=== PATIENT | male | born 1985 | race Caucasian/White ===

== ENCOUNTER → 2017-12-20 | Outpatient (CLI) | payer BC | END | disposition home or self-care (01) | LOC: LABWHC1 09:42 | PROVIDERS: ATTEND Orthopaedic Surgery | DX: M25.571 Pain in right ankle and joints of right foot (principal); M10.9 Gout, unspecified; M79.671 Pain in right foot | CPT/HCPCS: 89060 ==

== ENCOUNTER → 2019-01-11 | Outpatient (CLI) | payer BC ==
[2019-01-11 07:06] LABS: Basophils # (A) 0.1 k/uL (0-0.2); Basophils % (A) 1 %; Eosinophils # (A) 0.3 k/uL (0-0.7); Eosinophils % (A) 5 %; HCT 47.7 % (39.0-53.0); HGB 15.4 gm/dL (13.0-17.5); Lymphocytes # (A) 2.5 k/uL (1.0-4.8); Lymphocytes % (A) 41 %; MCH 28.5 pg (25.0-35.0); MCHC 32.4 g/dL (31.0-37.0); MCV 88.1 fL (80.0-100.0); Mean Platelet Volume 5.9; Monocytes # (A) 0.4 k/uL (0-1.0); Monocytes % (A) 6 %; Neutrophils # (A) 2.7 k/uL (1.3-7.7); Neutrophils % (A) 44 %; Platelet Count 371 k/uL (150-450); RBC 5.41 m/uL (4.30-5.90); RDW 13.2 % (11.5-15.5); WBC 6.1 k/uL (3.8-10.6)
[2019-01-11 13:45] LABS: Hemoglobin A1C 5.7 % (4.0-6.0)
[2019-01-11 15:15] LABS: T4, Free (Free Thyroxine) 1.1 ng/dL (0.80-1.80)
[2019-01-11 16:24] LABS: African American GFR (CKD) 100.3 (60.0-200.0); Albumin 4.7 g/dL (3.80-4.90); Albumin/Globulin Ratio 2.04 (1.60-3.17); Anion Gap 10.6 mmol/L (4.00-12.00); BUN/Creat Ratio 13.64 Ratio (12.00-20.00); Bilirubin, Conjugated 0.2 mg/dL (0.20-0.40); Bilirubin,Unconjugated 0.5 mg/dL; Calcium 9.7 mg/dL (8.7-10.3); Carbon Dioxide 23.4 mmol/L (21.6-31.8); Chol/HDL Ratio 4.93; Globulin 2.3 g/dL (1.6-3.3); LDL Cholesterol,Calculated 118.8 mg/dL (0.0-131.0); Potassium 4.5 mmol/L (3.5-5.5); Total Bilirubin 0.7 mg/dL (0.3-1.2); VLDL Calculation 42.2 mg/dL (5.00-40.00)
== END | disposition home or self-care (01) ==
LOC: LABWHC1 06:44
PROVIDERS: ATTEND Nurse Practitioner Family
DX: Z00.00 Encounter for general adult medical examination without abnormal findings (principal); E03.9 Hypothyroidism, unspecified; Z83.3 Family history of diabetes mellitus
CPT/HCPCS: 36415; 80053; 80061; 82150; 82248; 83036; 83690; 84439; 84443; 85025

== ENCOUNTER → 2019-11-29 | Outpatient (CLI) | payer BC ==
[2019-11-29 09:07] LABS: ALT 160 U/L (4-49); AST 79 U/L (17-59); African American GFR (CKD) >90 (>60 ml/min/1.73 sqM); Albumin 4.8 g/dL (3.5-5.0); Alkaline Phosphatase 62 U/L (38-126); Anion Gap 7 mmol/L; Blood Urea Nitrogen 19 mg/dL (9-20); Calcium 9.7 mg/dL (8.4-10.2); Carbon Dioxide 28 mmol/L (22-30); Chloride 102 mmol/L (98-107); Cholesterol 220 mg/dL (<200); Glucose 106 mg/dL (74-99); HDL Cholesterol 45 mg/dL (40-60); LDL Cholesterol,Calculated 136 mg/dL (0-99); Non-African American GFR(CKD) >90 (>60 ml/min/1.73 sqM); Potassium 4.8 mmol/L (3.5-5.1); Sodium 137 mmol/L (137-145); Total Protein 7.9 g/dL (6.3-8.2); Triglycerides 195 mg/dL (<150); Uric Acid 7.5 mg/dL (3.5-8.5)
--- NOTE | 2019-11-29 09:51 | XR ---
EXAMINATION TYPE: XR shoulder complete RT DATE OF EXAM: 11/29/2019 CLINICAL HISTORY: History of recurrent shoulder dislocation with pain TECHNIQUE: Three views of the right shoulder are obtained. COMPARISON: None. FINDINGS: There is no acute fracture/dislocation evident in the right shoulder. Mild to moderate humphrey rowing and mild spurring at acromioclavicular joint. The distal acromion morphology is unremarkable . Glenohumeral joint is maintained currently. The visualized ribs are intact and unremarkable. IMPRESSION: As above.
== END | disposition home or self-care (01) ==
LOC: RADXRMAIN 07:35
PROVIDERS: ATTEND Family Medicine
DX: M25.811 Other specified joint disorders, right shoulder (principal); E03.9 Hypothyroidism, unspecified; E78.2 Mixed hyperlipidemia; M10.9 Gout, unspecified; Z79.899 Other long term (current) drug therapy
CPT/HCPCS: 80053; 80061; 84439; 84443; 84550; 86780

== ENCOUNTER → 2020-01-24 | Outpatient (CLI) | payer BC ==
--- NOTE | 2020-01-24 22:21 | CONS ---
CONSULTATION DATE OF SERVICE: 01/24/2020 This patient is a 34-year-old gentleman who has been evaluated in the sleep center for possible obstructive sleep apnea-hypopnea syndrome. HISTORY OF PRESENT ILLNESS/SLEEP-WAKE EVALUATION: Patient's usual sleep schedule on working days is from 11 p.m. to 4 or 4:10 a.m. and on weekends from midnight until 7 a.m. No problems with falling asleep, although he has a TV set in the bedroom. He sleeps on the back and side positions with extremely loud snoring, according to his , and episodes of stopped breathing during sleep. He wakes up from sleep 3 times with episodes of heartburn, gasping for air, restless legs, sleeptalking and nocturia. No history of hypnagogic hallucinations, sleep paralysis or cataplexy. [place] Sleepiness Scale is in extremely high range at 20. Usually the patient does not take naps. PAST MEDICAL HISTORY: Past medical history is positive for hypothyroidism, gout. PAST SURGICAL HISTORY: Fatty tumor removed from the back of his head. MEDICATIONS: Allopurinol, levothyroxine. SOCIAL HISTORY: Positive for smoking; quit in 2006. Alcohol consumption occasional. FAMILY HISTORY: Arthritis, snoring. REVIEW OF SYSTEMS: Multiple awakenings from sleep, significant excessive daytime sleepiness. PHYSICAL EXAMINATION: GENERAL: A pleasant gentleman without distress. VITAL SIGNS: BP 154/82, HR 80, RR 16, height 6 feet 0 inches, weight 291, BMI 39.4, temperature 98.0. Oxygen saturation 96%. HEENT: PERRLA, EOMI. Evaluation of oropharynx showed tongue protrudes midline. Low position of soft palate. Mallampati III. NECK: Supple. No JVD. Thyroid is not palpable. Neck is extremely wide at 19-1/2 inches in circumference. LUNGS: Clear to percussion and to auscultation. Good air exchange. No wheezing or rhonchi. HEART: S1, S2 regular. No murmurs, gallops or rubs. ABDOMEN: Obese. EXTREMITIES: No clubbing or cyanosis. SUEDING MACHINE TENDER: Awake, alert, and oriented X3. Cranial nerves 2 to 7 intact. There is no fasciculation or atrophy. noted. No focal deficits observed. IMPRESSION: 1. Loud snoring, witnessed episodes of stopped breathing during sleep, low position of soft palate, wide neck, sleepiness; obstructive sleep apnea-hypopnea syndrome. 2. Extreme sleepiness with [place] Sleepiness Scale of 20, dictating necessity to include in differential diagnosis narcolepsy without cataplexy. 3. Obesity. BMI 39.4. 4. Gout. 5. Hypothyroidism. 6. Hypertension in the office. 7. Status post fatty tumor removed from the back of the head. 8. Positive history of restless leg symptoms. PLAN: 1. Home sleep apnea test for evaluation of patient's breathing during sleep. 2. CPAP/BiPAP titration if sleep study confirms obstructive sleep apnea-hypopnea syndrome. 3. Preferable position during sleep on the side. 4. No driving if patient feels any sleepiness. 5. I will see patient for follow up visit to explain results of testing and following plan. Thank you very much for referring this patient for consultation. Sincerely, Tobi Gutierrez MD, PhD, FAASM Diplomat of [employer] [facility] [place] MMODL / IJN: [id number] /
== END | disposition home or self-care (01) ==
LOC: SLEEP 16:20
PROVIDERS: ATTEND Internal Medicine
DX: G47.33 Obstructive sleep apnea (adult) (pediatric) (principal); E66.9 Obesity, unspecified; M10.9 Gout, unspecified; E03.9 Hypothyroidism, unspecified; I10 Essential (primary) hypertension; Z98.890 Other specified postprocedural states; Z68.39 Body mass index [BMI] 39.0-39.9, adult; Z86.69 Personal history of other diseases of the nervous system and sense organs; Z79.890 Hormone replacement therapy; Z79.899 Other long term (current) drug therapy
CPT/HCPCS: 99211

== ENCOUNTER 2021-05-07 10:50 | Emergency (ER) | payer BC ==
[2021-05-07 11:02] VITALS: RESP 18; TEMP 98
--- NOTE | 2021-05-07 11:31 | ED ---
General Adult HPI - General Stated complaint: congestion, cough Time Seen by Provider: 05/07/21 10:52 Source: patient, RN notes reviewed Mode of arrival: ambulatory Limitations: no limitations - History of Present Illness Initial comments: 35-year-old male presents emergency Department with chief complaint of COVID-19. Patient states started a few days ago patient has fever cough congestion body aches. Patient has no difficulty breathing. Patient is not vaccinated. Patient offers no complaints. - Related Data Previous Rx's Medication Instructions Recorded HYDROcodone/APAP 5-325MG [Pound 5] 1 each PO Q4HR PRN #20 tab 12/12/14 Allergies Allergy/AdvReac Type Severity Reaction Status Date / Time amoxicillin Allergy Unknown Verified 05/07/21 10:57 Childhood Review of Systems ROS Statement: Those systems with pertinent positive or pertinent negative responses have been documented in the HPI. ROS Other: All systems not noted in ROS Statement are negative. Past Medical History Past Medical History: No Reported History History of Any Multi-Drug Resistant Organisms: None Reported Additional Past Surgical History / Comment(s): tumor Past Psychological History: No Psychological Hx Reported Smoking Status: Never smoker Past Alcohol Use History: Occasional Past Drug Use History: None Reported General Exam Limitations: no limitations General appearance: alert, in no apparent distress Head exam: Present: atraumatic, normocephalic, normal inspection Eye exam: Present: normal appearance, PERRL, EOMI. Absent: scleral icterus, conjunctival injection, periorbital swelling ENT exam: Present: normal exam, normal oropharynx, mucous membranes moist Neck exam: Present: normal inspection, full ROM. Absent: tenderness, meningismus, lymphadenopathy Respiratory exam: Present: normal lung sounds bilaterally. Absent: respiratory distress, wheezes, rales, rhonchi, stridor Cardiovascular Exam: Present: regular rate, normal rhythm, normal heart sounds. Absent: systolic murmur, diastolic murmur, rubs, gallop, clicks Course Vital Signs 05/07/21 10:58 Temperature 98.0 F Pulse Rate 72 Respiratory 18 Rate Blood Pressure 142/92 O2 Sat by Pulse 97 Oximetry Medical Decision Making - Medical Decision Making Patient will receive monoclonal antibodies will be discharged stable condition return parameters were discussed. Disposition Clinical Impression: COVID-19 Disposition: HOME SELF-CARE Condition: Stable Instructions (If sedation given, give patient instructions): Coronavirus Disease 2019 (COVID-19) Additional Instructions: Please return to the Emergency Department if symptoms worsen or any other concerns. Is patient prescribed a controlled substance at d/c from ED?: No Referrals: Franko Mays MD [Primary Care Provider] - 1-2 days Time of Disposition: 11:31
[2021-05-07] MEDS ORDERED: SOTROVIMAB (EUA) 500 MG in SODIUM CHLORIDE 0.9% 100 ML IVPB ONE (12:00)
[2021-05-07] MEDS ORDERED: SODIUM CHLORIDE 0.9% 50 ML IVPB ONE (12:30)
[2021-05-07 13:50] VITALS: BP 124/84; PULSE 66
== END 2021-05-07 13:50 | disposition home or self-care (01) ==
LOC: EC 10:50
DX: U07.1 COVID-19 (principal)
CPT/HCPCS: 99283; Q0247

== ENCOUNTER → 2023-01-14 | Outpatient (CLI) | payer OTHER ==
--- NOTE | 2023-01-20 20:37 | US ---
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 4.1 X 3.1 x 3.0 cm, upper mid, solid or almost completely solid, hypoechoic nodule, which is wid er than tall, with smooth margins, without echogenic foci. 2. 6.4 X 6.1 x 5.4 cm, lower mid, solid or almost completely solid, hyperechoic nodule, which is wi carlyle than tall, with smooth margins, without echogenic foci. LEFT: # of nodules measured on left: 0 heterogenous parenchyma, no discrete nodule ISTHMUS: # of nodules measured in the isthmus: 1 1. 4.0 X 4.6 x 4.9 cm solid or almost completely solid, hyperechoic nodule, which is taller than wi de, with smooth margins, without echogenic foci. Bilateral neck scanned, no evidence of lymphadenopathy. Project Controls Scheduler notes: Exam limited by large size of nodules IMPRESSION: A couple large solid nodules on the right measuring 6.4 cm and 4.1 cm. Large nodule in the thyroid is thmus measuring 4.9 cm. Overall limited assessment of the thyroid parenchyma due to the sizable nodul es.
== END | disposition home or self-care (01) ==
LOC: RADUSWWP 15:48
PROVIDERS: ATTEND Family Medicine
DX: Z53.9 Procedure and treatment not carried out, unspecified reason (principal)

== ENCOUNTER 2023-03-01 12:47 | Day surgery (SDC) | payer OTHER ==
[2023-03-01 14:15] VITALS: RESP 16; TEMP 98
[2023-03-01 14:45] VITALS: BP 137/73; PULSE 74
--- NOTE | 2023-03-01 18:17 | US ---
EXAMINATION TYPE: US FNA first lesion DATE OF EXAM: 03/01/2023 2:31 PM CLINICAL INDICATION:Male, 37 years old with history of E04.9GOITER, E04.1 THYROID NODULE; , thyroid n odule. COMPARISON: 01/20/2023. ATTENDING: Dr. Viet Brito PROCEDURE: Informed consent was obtained. The risks and benefits of the procedure were discussed with the patien t. The site was marked. Timeout procedure was performed Ultrasound imaging of the thyroid demonstrates multiple nodules. Ordering provider wanted 3 thyroid thyroid nodule FNA's. One of the thyroid nodules most superior asp ect in the submandibular region a large vessel coursing anterior to it and this nodule was not attemp devi. A large right thyroid nodule and a isthmus nodule on the right were targeted. Aortography dated with five fine needle aspiration performed in each nodule with a 25 gauge needle. Samples were sent to the pathology department for further analysis. Patient tolerated the procedure without incident and was sent home in stable condition. IMPRESSION: 1. Successful ultrasound guided fine needle aspiration of 2 thyroid nodules. 2. Aborted right superior submandibular region nodule due to large vessel coursing along the nodule.
== END 2023-03-01 14:45 | disposition home or self-care (01) ==
LOC: RADPROMAIN 12:47
PROVIDERS: ATTEND Family Medicine
DX: E04.2 Nontoxic multinodular goiter (principal)
CPT/HCPCS: 10005; 10006; 88173; 88305

== ENCOUNTER → 2023-04-05 | Outpatient (CLI) | payer OTHER ==
--- NOTE | 2023-04-05 13:47 | NM ---
EXAMINATION TYPE: NM thyroid image only DATE OF EXAM: 04/05/2023 COMPARISON: 01/20/2023, 03/01/2023. CLINICAL INDICATION: Male, 37 years old with history of E04.9 NONTOXIC GOITER, UNSPECIFIED; TECHNIQUE: After the intravenous administration of 10.1 mCi Tc 99m Sodium Pertechnetate. FINDINGS: There is a large cold nodule in the right mid thyroid gland which correlates with ultrasoun d imaging and prior FNA. No hypermetabolic nodules identified IMPRESSION: Cold nodule within the right thyroid gland. This was previously biopsied on 03/01/2023. C orrelate with pathology. Consider sampling if clinically warranted.
== END | disposition home or self-care (01) ==
LOC: RADNMMAIN 10:53
PROVIDERS: ATTEND Family Medicine
DX: E04.1 Nontoxic single thyroid nodule (principal)
CPT/HCPCS: 78013; A9512